=== PATIENT | female | born 1945 | race Caucasian/White ===

== ENCOUNTER 2017-10-27 19:12 | Inpatient (IN) | payer OTHER, MEDICARE ==
[~2017-10-27] VITALS: Ht 157.5 cm; Wt 74.4 kg
[~2017-10-27 19:12] MED LIST: ASPIRIN CHILDRE81 MG PO; ATORVASTATIN CA20 MG PO; CO-Q-10 200 MG-1 SGL PO; FLUOXETINE20 MG PO; HYDRODIURIL 112.5 M1 PO; LEVOTHYROXIN0.088 M1 PO; LISINOPRIL20 MG PO; MULTIVITAMIN1 TAB PO; VITAB121000 PO; VITAMIN D1000 IU PO; VITAMIN D32000 I1 PO
--- NOTE | 2017-10-27 19:24 | ED GENERAL ADULT ---
History of Present Illness General Chief Complaint: Nausea, Vomiting, Diarrhea Stated Complaint: NVD Source: patient, family, old records, EMS Exam Limitations: no limitations Vital Signs & Intake/Output Vital Signs & Intake/Output Vital Signs Date Time Temp Pulse Resp B/P B/P Pulse O2 O2 Flow FiO2 Mean Ox Delivery Rate 10/27 2110 96.9 69 18 181/76 95 Room Air 10/27 1941 98 Room Air 10/27 1924 97.5 70 18 172/79 97 Room Air Allergies Coded Allergies: Penicillins (WAS TOLD BY SHE WAS ALLERGIC 10/27/17) latex (WAS TOLD BY SHE WAS ALLERGIC 10/27/17) Reconcile Medications Ascorbic Acid (Vitamin C) 1,000 MG TABLET 2 TAB PO DAILY SUPPLEMENT (Reported ) Aspirin (Ecotrin*) 81 MG TABLET.DR 1 TAB PO DAILY HEART/BLOOD (Reported) Atorvastatin Calcium (Lipitor) 20 MG TABLET 1 TAB PO DAILY CHOLESTEROL ( Reported) Cetirizine HCl (Zyrtec) 10 MG TABLET 1 TAB PO PRN ALLERGIES (Reported) Clindamycin HCl (Cleocin HCl) (Unknown Strength) CAPSULE (Unknown Dose) PO AD PRN DENTIST APPT (Reported) Cranberry Extract (Cranberry) 500 MG CAPSULE 5 CAP PO DAILY SUPPLEMENT ( Reported) Cyanocobalamin (Vitamin B-12) (Vitamin B-12) 250 MCG TABLET 3 TAB PO DAILY SUPPLEMENT (Reported) Fluoxetine HCl 20 MG CAPSULE 1 CAP PO DAILY MENTAL HEALTH (Reported) Levothyroxine Sodium (Levoxyl) 75 MCG TABLET 1 TAB PO DAILY THYROID (Reported ) Lisinopril 30 MG TABLET 1 TAB PO DAILY BP (Reported) Multivit-Min/Atul/Biotin/D3/FA (Biotin Plus-Calcium & Vit D3) 200 MG-450 MCG-400 UNIT-400 MCG TABLET 2 TAB PO DAILY SUPPLEMENT (Reported) [place]-3 Fatty Acids/Fish Oil (Fish Oil 1,200 MG Softgel) 360 MG-1,200 MG CAPSULE 2 CAP PO DAILY SUPPLEMENT (Reported) [place] Oil/[place]-3 Fatty Acids ([place] Oil 1,000 MG Softgel) (Unknown Strength) CAPSULE (Unknown Dose) PO DAILY SUPPLEMENT (Reported) Solifenacin Succinate (Vesicare) 5 MG TABLET 1 TAB PO DAILY BLADDER (Reported ) Turmeric Root Extract (Turmeric) (Unknown Strength) CAPSULE (Unknown Dose) PO DAILY SUPPLEMENT (Reported) Ubidecarenone (Co Q-10) 200 MG CAPSULE 1 CAP PO DAILY SUPPLEMENT (Reported) Vitamin B Complex/Folic Acid (Vitamin B-50 Complex Tablet) (Unknown Strength) TABLET (Unknown Dose) PO DAILY SUPPLEMENT (Reported) Triage Note: 72F BIBA FOR INCREASED WEAKNESS 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 HX ALS AND GAIT LIMITATIONS DUE TO WEAKNESS/PARALYSIS. MUCOUS MEMBRANES GOOD. ABLE TO COMMUNICATE VERBALLY WITH SLURRING OF WORKS. ORIENTED X3. AFEBRILE. CONTRACTED LEGS WITH PAIN TO BOTH AND TO BACK Triage Nurses Notes Reviewed? yes HPI: Patient brought in by ambulance for increasing weakness. Patient has ALS. Patient was seen by [facility] on Wednesday. They are in the process of ordering her a wheelchair. This afternoon she had an episode of diarrhea. Patient is currently using a walker to get around but is unable to because of bilateral leg and knee weakness. Patient brought in for evaluation. Patient denies any abdominal pain. Patient denies any anorexia however she states that she has not eaten dinner. There are no fevers or chills. She denies any dysuria. The patient is usually able to pivot without her to her motorized wheelchair however over the past 3 days he is barely able to move her. Tonight after going to the bathroom she fell while getting off the toilet. Her was able to catch her and lowered her to the ground. He was then unable to pick her up secondary to her weakness so 911 was contacted. Past History Medical History Any Pertinent Medical History? see below for history Cardiovascular: hypertension Endocrine: hyperthyroidism Other Medical Hx: ALS Surgical History Surgical History: non-contributory Psychosocial History What is your primary language Setswana Tobacco Use: Never used ETOH Use: denies use Illicit Drug Use: denies illicit drug use Family History Hx Contributory? No Review of Systems Review of Systems Constitutional: Reports: see HPI, weakness. EENTM: Reports: no symptoms. Respiratory: Reports: no symptoms. Cardiovascular: Reports: no symptoms. GI: Reports: see HPI, diarrhea (X1). Genitourinary: Reports: no symptoms. Musculoskeletal: Reports: see HPI. Skin: Reports: no symptoms. Neurological/Psychological: Reports: no symptoms. Hematologic/Endocrine: Reports: no symptoms. Immunologic/Allergic: Reports: no symptoms. All Other Systems: Reviewed and Negative Physical Exam Physical Exam General Appearance: well developed/nourished, alert, awake, anxious, mild distress Head: atraumatic, normal appearance Eyes: Bilateral: PERRL, EOMI. Ears, Nose, Throat: normal pharynx, normal ENT inspection, hearing grossly normal Neck: normal inspection, supple, full range of motion Respiratory: normal breath sounds, chest non-tender, no respiratory distress, lungs clear Cardiovascular: regular rate/rhythm, normal peripheral pulses Gastrointestinal: normal bowel sounds, soft, non-tender, no organomegaly Back: normal inspection, normal range of motion Extremities: normal inspection, normal capillary refill, normal range of motion, no edema Neurologic/Psych: no motor/sensory deficits, awake, alert, oriented x 3, normal mood/affect Core Measures ACS in differential dx? No CVA/TIA Diagnosis: No Sepsis Present: No Sepsis Focused Exam Completed? No Progress Differential Diagnoses I considered the following diagnoses in my evaluation of the patient: [ ELECTROLYTE ABNORMALITY, ENTERITIS, DEHYDRATION] Plan of Care: Orders Procedure Date/time Status Heart Healthy Diet 10/28 B Active ED Holding Orders 10/27 2148 Active Admit to inpatient 10/27 2148 Active Vital Signs 10/27 2148 Active Code Status 10/27 2148 Active URINALYSIS 10/27 1923 Active TROPONIN LEVEL 10/27 1923 Complete COMPREHENSIVE METABOLIC PANEL 10/27 1923 Complete CBC WITHOUT DIFFERENTIAL 10/27 1923 Complete EKG 10/27 1923 Active Laboratory Tests 10/27/17 193: Anion Gap 12, Estimated GFR > 60, BUN/Creatinine Ratio 41.7 H, Glucose 104 H, Calcium 9.9, Total Bilirubin 0.4, AST 31, ALT 30, Alkaline Phosphatase 94, Troponin I < 0.01, Total Protein 7.1, Albumin 4.2, Globulin 2.9, Albumin/ Globulin Ratio 1.4, CBC w Diff NO MAN DIFF REQ, RBC 5.16, MCV 85.0, MCH 28.1, MCHC 33.1, RDW 13.4, MPV 12.6 H, Gran % 82.9 H, Lymphocytes % 11.9 L, Monocytes % 3.9, Eosinophils % 1.0, Basophils % 0.3, Absolute Granulocytes 8.1 H, Absolute Lymphocytes 1.2, Absolute Monocytes 0.4, Absolute Eosinophils 0.1, Absolute Basophils 0 Initial ED EKG: NSR, nonspecific ST T wave chg Departure Departure Disposition: STILL A PATIENT Condition: Stable Clinical Impression Primary Impression: Multifactorial gait disorder Referrals: Elisa Corbett MD (PCP/Family) Departure Forms: Customer Survey General Discharge Information Admission Note Spoke With: Gallo Mancilla MDhesham Documentation of Exam: Documentation of any treatments & extenuating circumstances including Concerns Regarding Discharge (functional status, medication knowledge or non-compliance, living conditions, etc.) that warrant an admission rather than observation: [PT TO BE ADMITTED FOR PROFOUND WEAKNESS, UNSAFE AT HOME, PT EVALUATION AND TREATMENT, ANTICIPATE STR.] Critical Care Note Critical Care Note Critical Care Time: non-applicable
[2017-10-27 19:46] LABS: ABSOLUTE BASOPHIL COUNT 0 /CUMM (0.0-0.2); ABSOLUTE EOSINOPHIL COUNT 0.1 /CUMM (0.0-0.7); ABSOLUTE GRANULOCYTE CT 8.1 /CUMM (1.4-6.5); ABSOLUTE LYMPH COUNT 1.2 /CUMM (1.2-3.4); ABSOLUTE MONOCYTE COUNT 0.4 /CUMM (0.10-0.60); BASOPHIL % 0.3 % (0.0-2.0); GRANULOCYTE % 82.9 % (42.2-75.2); HEMATOCRIT 43.9 % (37-47); MEAN CORPUSCULAR HGB 28.1 PG (27.0-31.0); MEAN CORPUSCULAR HGB CONC 33.1 G/DL (33.0-37.0); MEAN PLATELET VOLUME 12.6 FL (7.4-10.4); PLATELET COUNT 202 /CUMM (130-400); RBC DISTRIBUTION WIDTH 13.4 % (11.5-14.5); RED BLOOD CELL CT 5.16 /CUMM (4.20-5.40); WHITE BLOOD CELL COUNT 9.8 /CUMM (4.8-10.8)
[2017-10-27] MEDS ORDERED: LEVOXYL75 MCG PO (19:47)
[2017-10-27] MEDS ORDERED: LISINOPRIL30 M1 PO (19:47)
[2017-10-27] MEDS ORDERED: ASPIRIN EC81 M1 PO (19:48)
[2017-10-27] MEDS ORDERED: FLUOXETINE HCL20 M2 PO (19:48)
[2017-10-27] MEDS ORDERED: LIPITOR20 M2 PO (19:48)
[2017-10-27] MEDS ORDERED: ZYRTEC10 M3 PO (19:49)
[2017-10-27] MEDS ORDERED: CLEOCIN HCL300 M1 PO (19:51)
[2017-10-27] MEDS ORDERED: BIOTIN PLUS-CA1 EACH PO (19:52)
[2017-10-27] MEDS ORDERED: VESICARE5 M1 PO (19:52)
[2017-10-27] MEDS ORDERED: VITAMIN B-12250 MCG PO (19:53)
[2017-10-27] MEDS ORDERED: OMEGA-31000 M1 PO (19:54)
[2017-10-27] MEDS ORDERED: VITAMIN C1000 M4 PO (19:54)
[2017-10-27] MEDS ORDERED: VITAMIN B-50 C0.4 MG PO (19:55)
[2017-10-27] MEDS ORDERED: FISH OIL 1,2001 EAC4 PO (19:56)
[2017-10-27] MEDS ORDERED: SALMON OIL 1,01 EACH PO (19:57)
[2017-10-27] MEDS ORDERED: CO Q-10200 MG PO (19:58)
[2017-10-27] MEDS ORDERED: CRANBERRY500 MG PO (19:58)
[2017-10-27] MEDS ORDERED: TURMERIC500 M2 PO (20:00)
--- NOTE | 2017-10-27 22:33 | History & Physical ---
Jamaal BOYD,[facility] 10/27/17 2232: General Information and HPI MD Statement: I have seen and personally examined JERMAINE BEARDEN and documented this H&P. The patient is a 72 year old F who presented with a patient stated chief complaint of [generalized weakness]. Source of Information: patient Exam Limitations: no limitations History of Present Illness: The patient is 72-year-old female with past medical history of ALS diagnosed in 2016, history of multiple falls, hypertension, hypothyroidism and depression. The patient presented to [place] ED on 10/27 with complain of generalized weakness resulting in mechanical fall. The patient states that she had a fall in May 2017 resulting in intracranial bleed. Since then her weakness has been getting more and more worse and she is now wheelchair-bound completely. She has a motorized wheelchair. She just pivots from the wheelchair to the toilet and bed with the help of her . Patient was in her usual state of health until last night. She went to the bathroom while getting up from the commode she felt like her legs completely gave up on her. Her caught her before she could fall and lowered her to the ground slowly. Her legs rolled under her and she hit her knees. At that time she had one episode of fecal incontinence. Patient denies any chest pain palpitations or lightheadedness and dizziness before the episode. She did not hit her head. She did not lose consciousness. There was no seizure-like activity or jerking movement of the body. No tongue bite. No urinary incontinence. She remembers the whole incident. On ROS she reports extreme weakness, and right neck and shoulder pain along with back spasms. Patient denies any difficulty breathing or swallowing. Reports voice change since past 1 year. Allergies/Medications Allergies: Coded Allergies: Penicillins (WAS TOLD BY SHE WAS ALLERGIC 10/27/17) latex (WAS TOLD BY SHE WAS ALLERGIC 10/27/17) Past History Travel History Traveled to [place] past 21 day No Medical History Neurological: ALS EENT: NONE Cardiovascular: hypertension Respiratory: NONE Gastrointestinal: NONE Hepatic: NONE Renal: NONE Musculoskeletal: NONE Psychiatric: NONE Endocrine: hyperthyroidism Other Medical Hx: ALS Surgical History Surgical History: cholecystectomy, hysterectomy, knee replacement (b/l) Past Family/Social History Psychosocial History Where do you live? Home Who Do You Live With? spouse Primary Language: Macedonian Smoking Status: Never Smoked ETOH Use: occasional use Illicit Drug Use: denies illicit drug use Functional Ability ADLs Needs Assist: dressing, eating, toileting, bathing. Ambulation: non-ambulatory, wheel chair bound IADLs Needs Assist: shopping, housework, finances, food prep, telephone, transportation, medication admin. Review of Systems Review of Systems Constitutional: Reports: see HPI. Denies: chills, fever. EENTM: Reports: no symptoms. Cardiovascular: Reports: no symptoms. Denies: chest pain. Respiratory: Reports: no symptoms. Denies: cough, orthopnea, sputum production. GI: Reports: no symptoms. Genitourinary: Reports: no symptoms. Musculoskeletal: Reports: back pain, joint pain, neck pain. Skin: Reports: no symptoms. Exam & Diagnostic Data Last 24 Hrs of Vital Signs/I&O Vital Signs Date Time Temp Pulse Resp B/P B/P Pulse O2 O2 Flow FiO2 Mean Ox Delivery Rate 10/27 2332 97.1 64 18 170/72 95 Room Air 10/27 2111 96.9 69 18 181/76 95 Room Air 10/27 1942 98 Room Air 10/27 1925 97.5 70 18 172/79 97 Room Air Intake & Output 10/28 0800 10/28 0000 10/27 1600 Intake Total 1000 Output Total 400 Balance 600 Intake, IV 1000 Output, Urine 400 Patient 164 lb Weight Weight Reported by Patient Measurement Method Physical Exam General Appearance Alert, Oriented X3, Cooperative Skin No Rashes HEENT Atraumatic, PERRLA, EOMI, Mucous Membr. moist/pink Neck Supple, No JVD Cardiovascular Normal S1, Normal S2, No Murmurs Lungs Clear to Auscultation, Normal Air Movement Abdomen Normal Bowel Sounds, Soft, No Tenderness Neurological Normal Speech, Normal Tone, Sensation Intact, Cranial Nerves 3-12 NL Extremities No Edema, Normal Pulses Last 24 Hrs of Labs/[place]: Laboratory Tests 10/27/17 2155: Urine Color YEL, Urine Clarity CLEAR, Urine pH 6.0, Ur Specific [place] 1.020, Urine Protein NEG, Urine Ketones TRACE H, Urine Nitrite NEG, Urine Bilirubin NEG, Urine Urobilinogen 0.2, Ur Leukocyte Esterase TRACE H, Ur Microscopic SEDIMENT EXAMINED, Urine RBC RARE, Urine WBC 5-10 H, Ur Epithelial Cells RARE, Urine Bacteria FEW H, Urine Mucus MOD H, Urine Hemoglobin NEG, Urine Glucose NEG 10/27/173: Anion Gap 12, Estimated GFR > 60, BUN/Creatinine Ratio 41.7 H, Glucose 104 H, Calcium 9.9, Total Bilirubin 0.4, AST 31, ALT 30, Alkaline Phosphatase 94, Troponin I < 0.01, Total Protein 7.1, Albumin 4.2, Globulin 2.9, Albumin/ Globulin Ratio 1.4, CBC w Diff NO MAN DIFF REQ, RBC 5.16, MCV 85.0, MCH 28.1, MCHC 33.1, RDW 13.4, MPV 12.6 H, Gran % 82.9 H, Lymphocytes % 11.9 L, Monocytes % 3.9, Eosinophils % 1.0, Basophils % 0.3, Absolute Granulocytes 8.1 H, Absolute Lymphocytes 1.2, Absolute Monocytes 0.4, Absolute Eosinophils 0.1, Absolute Basophils 0 Diagnostic Data CXR Results IMPRESSION: No evidence for acute disease. Other Results XRY-KNEE COMPLETE LEFT; XRY-KNEE COMPLETE RIGHT IMPRESSION: Intact bilateral knee prostheses. Small bilateral knee joint effusions. No acute fractures. Assessment/Plan Assessment: The patient is 72-year-old female with past medical history of ALS diagnosed in 2016, history of multiple falls, hypertension, hypothyroidism and depression. The patient presented to [place] ED on 10/27 with complain of generalized weakness resulting in mechanical fall. -VS within normal limits.BP 172/79 on autocuff -Pertinent labs WNL -Imaging findings dictated above -In ED patient received 2 mg of normal saline -She is being admitted to general medicine floor and was being evaluated and treated for following conditions #Generalized weakness and physical deconditioning Patient has history of ALS and recurrent falls with intracranial bleed in 2017. Her weakness has been worsening over time. Currently she is wheelchair-bound and pivots from her wheelchair to her bed and toilet with help of her . -PT evaluation in the morning -Patient will benefit from short-term rehabilitation -Pain pathway Tylenol, Toradol and lidocaine patch -Flexeril for back sapsms -Casemanagement pt wants to go to [facility] -Check TSH, free T4, B12, vit D #Prolonged QTC -Repeat EKG in am -Avoid QTC prolonging drugs #Chronic medical condition hypothyroidism, hypertension, overactive bladder and depression continue levothyroxine, lisinopril, Vesicare and fluoxetine. #DNR/DNI/DVT prophylaxis with Lovenox/regular diet As Ranked By This Provider Problem List: 1. Weakness Core Measures/Misc (06/20) Cerebrovascular Accident CVA/TIA Diagnosis: No Ngoc Greer 10/28/17 0030: General Information and HPI Allergies/Medications Home Med list Ascorbic Acid (Vitamin C) 1,000 MG TABLET 2 TAB PO DAILY SUPPLEMENT (Reported ) Aspirin (Ecotrin*) 81 MG TABLET.DR 1 TAB PO DAILY HEART/BLOOD (Reported) Cetirizine HCl (Zyrtec) 10 MG TABLET 1 TAB PO PRN ALLERGIES (Reported) Clindamycin HCl (Cleocin HCl) (Unknown Strength) CAPSULE (Unknown Dose) PO AD PRN DENTIST APPT (Reported) Cranberry Extract (Cranberry) 500 MG CAPSULE 5 CAP PO DAILY SUPPLEMENT ( Reported) Cyanocobalamin (Vitamin B-12) (Vitamin B-12) 250 MCG TABLET 3 TAB PO DAILY SUPPLEMENT (Reported) Fluoxetine HCl 20 MG CAPSULE 1 CAP PO DAILY MENTAL HEALTH (Reported) Levothyroxine Sodium (Levoxyl) 75 MCG TABLET 1 TAB PO DAILY THYROID (Reported ) Lisinopril 30 MG TABLET 1 TAB PO DAILY BP (Reported) Multivit-Min/Atul/Biotin/D3/FA (Biotin Plus-Calcium & Vit D3) 200 MG-450 MCG-400 UNIT-400 MCG TABLET 2 TAB PO DAILY SUPPLEMENT (Reported) [place]-3 Fatty Acids/Fish Oil (Fish Oil 1,200 MG Softgel) 360 MG-1,200 MG CAPSULE 2 CAP PO DAILY SUPPLEMENT (Reported) [place] Oil/[place]-3 Fatty Acids ([place] Oil 1,000 MG Softgel) (Unknown Strength) CAPSULE (Unknown Dose) PO DAILY SUPPLEMENT (Reported) Solifenacin Succinate (Vesicare) 5 MG TABLET 1 TAB PO DAILY BLADDER (Reported ) Turmeric Root Extract (Turmeric) (Unknown Strength) CAPSULE (Unknown Dose) PO DAILY SUPPLEMENT (Reported) Ubidecarenone (Co Q-10) 200 MG CAPSULE 1 CAP PO DAILY SUPPLEMENT (Reported) Vitamin B Complex/Folic Acid (Vitamin B-50 Complex Tablet) (Unknown Strength) TABLET (Unknown Dose) PO DAILY SUPPLEMENT (Reported) Core Measures/Misc (06/20) Acute Coronary Syndrome ACS Diagnosis: No Congestive Heart Failure Congestive Heart Failure Diagnosis No VTE (View Protocol) VTE Risk Factors Immobility No Mechanical VTE Prophylaxis d/t N/A MechProphylax Ordered No VTE Pharm Prophylaxis d/t NA PharmProphylax ordered Sepsis (View protocol) Sepsis Present: No Resident Review Statement Resident Statement: discussed with international flight attendant Other Findings: 72-year-old woman with past medical history of amyotrophic lateral sclerosis diagnosed September 2016, history of recurrent falls in the past and 1 resulting in intracranial bleed in May 2017. According to patient she has been getting weaker and weaker and wheelchair-bound since then. For past 1 week she was experiencing more generalized weakness. Per patient this morning her was helping her to go on the toilet when her legs gave out. Her was able to hold her and slowly lowered her to the ground. She hurt her both knees. At that time she had one episode of loose bowel movement. Her was not able to pick her up and called 911. She denies any fever, chills, nausea, vomiting, abdominal pain, urinary symptoms. Before the fall she denies any dizziness or lightheadedness, chest pain or discomfort, palpitations. She did not hit her head. No history of loss of consciousness. Currently she complains of pain in her neck, right shoulder, back and both knees. Vitals on admission: Temperature 97.5, pulse 70, respiratory rate 18, blood pressure 172/79 and oxygen saturation 97% on room air Pertinent physical exam findings: Small bruise on the anterior side of left knee. Small vertical healed scars on both knees. Neuro exam without any focality. Labs within normal limits Chest x-ray unremarkable Bilaterally x-ray showed intact bilateral knee prosthesis. Small bilateral knee joint effusion. No acute fractures. In ER she was given 1 L normal saline bolus. Assessment and plan 72-year-old woman with past medical history of amyotrophic lateral sclerosis and history of recurrent falls resulting in intracranial bleed in May 2017. She is going to be admitted to general medicine floor for generalized weakness and physical deconditioning. We will monitor vitals every shift. Continue all her home medications except supplements. PT evaluation and treatment in a.m. To regular diet. DVT prophylaxis. Pain management pathway. DNR/DNI. Laurent BOYD, [facility] 10/28/17 0305: Attending MD Review Statement Attending Statement Attending MD Statement: examined this patient, discuss w/resident/PA/ACADEMIC SUPPORT DIRECTOR, agreed w/resident/PA/ACADEMIC SUPPORT DIRECTOR, reviewed images, amended to note Attending Assessment/Plan: 72 yo F with h/o ALS (diagnosed Sep 2016) is cared for at the [facility] ([place]), HTN, seasonal allergies, DM not on meds s/p gastric sleeve, hypothyroidism, is here for increased weakness and falls. Patient has baseline b/l lower extremity weakness and slurring of speech from ALS. She is wheelchair bound, lives at home with her who helps her for transfers from to bed or toilet. She is able to pivot herself but does not ambulate. She was seen at the [facility] 2 days ago, and since then has been c/o back spasms and neck pain.Today while trying to transfer from to toilet, her knees gave out and she fell. She had an episode of diarrhea and had soiled her clothes. Her was beside her and he lowered her to the ground. He was unable to get her off the floor so EMS was called. When EMS tried to lift her up , she fell again and this time her knees locked up causing her pain. Vitals stable except BP 170/72. Neuro: slurred speech is baseline, no cranial nerve deficit, b/l LE power 2-3/5, limited exam - her knees are supported on two pillows and she would not straighten them for fear of back spasm. Unable to do a complete back exam. Labs: elevated BUN/creat ratio. CXR: neg. Bilateral Knee Xrays: intact knee prostheses, small b/l knee joint effusions, no acute fractures. EKG: SR (read as SVT but thats due to artefact). Assessment and plan: 1. Weakness, physical deconditioning 2. History of ALS 3. Recurrent falls, wheelchair bound but able to pivot 4. Essential hypertension 5. Viral gastroenteritis one episode of diarrhea, no N/V/ abd pain. - Admit to general medicine - Fall precautions - Check TSH, free T4, B12, vit D - Pain management with Tylenol, tramadol - Local lidoderm patch - Add flexeril or baclofen for back spasms - No obvious fractures on knee xray - PT eval - Case management consult for placement, first choice is [facility] DVT ppx Lovenox. DNR/I.
--- NOTE | 2017-10-27 23:31 | RADIOLOGY REPORT ---
EXAMINATION: CHEST 1 VIEW CLINICAL INFORMATION: Pain after fall. COMPARISON: None. TECHNIQUE: An AP view of the chest is provided. FINDINGS: The cardiac silhouette is not enlarged. The mediastinal and hilar contours are unremarkable. There are neither pleural effusions nor pneumothoraces. There are no consolidations. The osseous structures are unremarkable. IMPRESSION: No evidence for acute disease.
--- NOTE | 2017-10-27 23:34 | Admission Certification ---
Admission Certification Certification Statement - As attending physician, I certify that at the time of - admission, based on clinical presentation, severity of - symptoms, need for further diagnostic testing and - therapeutic interventions, and risk of adverse outcomes - without in-hospital treatment, in my clinical assessment, - this patient requires an acute hospital stay for a minimum - of two nights or longer. I have also considered psychsocial - factors such as support system, advanced age, financial - issues, cognitive issues, and failed out-patient treatments, - past re-admission history, safety of patient, and lack of - compliance as applicable. Specific rationale supporting this admission is: Weakness, fall, knee pain, deconditioning needs admission for PT, pain management and eventual STR.
--- NOTE | 2017-10-27 23:35 | RADIOLOGY REPORT ---
EXAMINATIONS: BILATERAL KNEES 3 VIEWS CLINICAL INFORMATION: Bilateral knee pain after fall. COMPARISON: None. TECHNIQUE: AP, lateral, oblique views of each knee were obtained. FINDINGS: There are no fractures or dislocations. Intact bilateral knee prostheses are demonstrated. There is are small bilateral knee joint effusions. There is no significant soft tissue swelling. IMPRESSION: Intact bilateral knee prostheses. Small bilateral knee joint effusions. No acute fractures.
[2017-10-28 07:32] VITALS: BP 142/76
--- NOTE | 2017-10-28 12:33 | PN- Housestaff ---
Joyce BOYD,Monica 10/28/17 1233: Subjective Follow-up For: SP FALL DECONDITIONING ALS Subjective: PATIENT HAS GENERALIZED CHRONIC PAIN IN HER BACK AND NECK AND LEGS. SHE HAS A HOARSE VOICE SECONDARY TO HER ALS Review of Systems Constitutional: Reports: weakness. Cardiovascular: Reports: no symptoms. Respiratory: Reports: no symptoms. Gastrointestinal: Reports: no symptoms. Genitourinary: Reports: no symptoms. Musculoskeletal: Reports: back pain, joint pain, muscle pain, neck pain. Skin: Reports: no symptoms. Neurological/Psychological: Reports: no symptoms. Objective Last 24 Hrs of Vital Signs/I&O Vital Signs Date Time Temp Pulse Resp B/P B/P Pulse O2 O2 Flow FiO2 Mean Ox Delivery Rate 10/28 1432 98.2 73 20 142/67 95 Room Air 10/28 1048 64 144/69 10/28 1044 64 18 144/69 96 Room Air 10/28 0732 98.1 60 18 142/76 10/28 0720 98.2 60 18 147/76 95 Room Air 10/27 2332 97.1 64 18 170/72 95 Room Air 10/27 2111 96.9 69 18 181/76 95 Room Air 10/27 1942 98 Room Air 10/27 1925 97.5 70 18 172/79 97 Room Air Intake & Output 10/28 1600 10/28 0800 10/28 0000 Intake Total 1000 Output Total 400 Balance 600 Intake, IV 1000 Output, Urine 400 Patient 164 lb Weight Weight Reported by Patient Measurement Method Physical Exam General Appearance: Alert, Oriented X3, Cooperative, No Acute Distress Skin: No Rashes, No Breakdown, No Significant Lesion Cardiovascular: Regular Rate, Normal S1, Normal S2, No Murmurs Lungs: Clear to Auscultation, Normal Air Movement Abdomen: Normal Bowel Sounds, Soft, No Tenderness, No Hepatospenomegaly Neurological: Normal Speech, Sensation Intact, Cranial Nerves 3-12 NL, DECREASED STRENGTH THROUGHOUT ARMS AND LEGS Extremities: No Clubbing, No Cyanosis, No Edema, Normal Pulses, No Tenderness/ Swelling Current Medications: Current Medications Sig/Keshawn Start time Last Medication Dose Route Stop Time Status Admin Acetaminophen 650 MG Q8P PRN 10/27 2230 AC PO Aspirin Buffered 81 MG DAILY 10/28 1000 AC 10/28 PO 1048 Cyclobenzaprine HCl 5 MG TID 10/28 1000 AC 10/28 PO 1048 Enoxaparin Sodium 40 MG DAILY 10/28 1000 AC 10/28 SC 1048 Fluoxetine HCl 20 MG DAILY 10/28 1000 AC 10/28 PO 1048 Levothyroxine Sodium 0.075 MG DAILY AC 10/28 0700 AC 10/28 PO 0639 Lidocaine 1 PAT DAILY 10/28 1000 AC 10/28 EXT 1048 Lisinopril 30 MG DAILY 10/28 1000 AC 10/28 PO 1048 Oxybutynin Chloride 5 MG DAILY 10/28 1000 AC 10/28 PO 1048 Sodium Chloride 1,000 ML BOLUS ONE 10/27 1930 DC 10/27 IV 10/27 Tramadol HCl 0 .STK-MED ONE 10/28 1055 DC PO Tramadol HCl 50 MG Q6P PRN 10/28 0100 AC 10/28 PO 1055 Tramadol HCl 0 .STK-MED ONE 10/28 0100 DC PO Last 24 Hrs of Lab/Kapil Results Last 24 Hrs of Labs/Mics: Laboratory Tests 10/28/17 0541: Anion Gap 9, Estimated GFR > 60, BUN/Creatinine Ratio 38.3 H, Vitamin B12 > 1000 H, 25-OH Vitamin D Total 34.3, TSH 1.710, Free T4 1.11 10/27/175: Urine Color YEL, Urine Clarity CLEAR, Urine pH 6.0, Ur Specific [place] 1.020, Urine Protein NEG, Urine Ketones TRACE H, Urine Nitrite NEG, Urine Bilirubin NEG, Urine Urobilinogen 0.2, Ur Leukocyte Esterase TRACE H, Ur Microscopic SEDIMENT EXAMINED, Urine RBC RARE, Urine WBC 5-10 H, Ur Epithelial Cells RARE, Urine Bacteria FEW H, Urine Mucus MOD H, Urine Hemoglobin NEG, Urine Glucose NEG 10/27/171932: Anion Gap 12, Estimated GFR > 60, BUN/Creatinine Ratio 41.7 H, Glucose 104 H, Calcium 9.9, Total Bilirubin 0.4, AST 31, ALT 30, Alkaline Phosphatase 94, Troponin I < 0.01, Total Protein 7.1, Albumin 4.2, Globulin 2.9, Albumin/ Globulin Ratio 1.4, CBC w Diff NO MAN DIFF REQ, RBC 5.16, MCV 85.0, MCH 28.1, MCHC 33.1, RDW 13.4, MPV 12.6 H, Gran % 82.9 H, Lymphocytes % 11.9 L, Monocytes % 3.9, Eosinophils % 1.0, Basophils % 0.3, Absolute Granulocytes 8.1 H, Absolute Lymphocytes 1.2, Absolute Monocytes 0.4, Absolute Eosinophils 0.1, Absolute Basophils 0 Microbiology 10/28 904 URINE ROUT: Urine Culture - COLB Assessment/Plan Assessment: The patient is 72-year-old female with past medical history of ALS diagnosed in 2016, history of multiple falls, hypertension, hypothyroidism and depression. The patient presented to [place] ED on 10/27 with complain of generalized weakness resulting in mechanical fall. -VS within normal limits.BP 172/79 on autocuff ON ADMISSION, NOW NORMAL -Labs WNL -Imaging findings cxr no acute process and no acute injury on xray knees -In ED patient received 2 mg of normal saline -She is admitted to general medicine floor and was being evaluated and treated for following conditions #Generalized weakness and physical deconditioning Patient has history of ALS and recurrent falls with intracranial bleed in 2017. Her weakness has been worsening over time. Currently she is wheelchair-bound and pivots from her wheelchair to her bed and toilet with help of her . -PT IS SUGGESTING STR -Pain pathway Tylenol, tramadol 50mg q6prn and lidocaine patch -Flexeril for back spasms 5mg TID -Case management TO HELP, PATIENT WOULD LIKE [facility] -TSH AND FREE T4 NORMAL, VIT D NORMAL 34, B12 HIGH >1000 -SPEECH AND SWALLOW SAW THE PATIENT AND AGREES WITH CHOPPED FOODS AND REGULAR THIN LIQUIDS. #Prolonged QTC -Avoid QTC prolonging drugs #Chronic medical condition hypothyroidism, hypertension, overactive bladder and depression continue levothyroxine, lisinopril 30mg daily, Vesicare and fluoxetine 20 mg daily. #DNR/DNI/DVT prophylaxis with Lovenox/regular diet Problem List: 1. Weakness 2. Multifactorial gait disorder 3. Knee contusion Pain Ratin Pain Location: WIDESPREAD KNEES NECK BACK Pain Goal: Pain 4 or less Pain Plan: PATHWAY Tomorrow's Labs & Rationales: Indra Wallis 10/28/17 1428: Attending Review Statement Attending Statement Attending MD Statement: examined this patient, discuss w/resident/PA/WIRE SPINNER, agreed w/resident/PA/WIRE SPINNER, discussed with family, reviewed EMR data (avail), discussed with nursing, discussed with case mgmt, reviewed images, amended to note Attending Assessment/Plan: "72 yo F with h/o ALS (diagnosed Sep 2016) is cared for at the [facility] ([place]), HTN, seasonal allergies, DM not on meds s/p gastric sleeve, hypothyroidism, is here for increased weakness and falls. Patient has baseline b/l lower extremity weakness and slurring of speech from ALS. She is wheelchair bound, lives at home with her who helps her for transfers from to bed or toilet. She is able to pivot herself but does not ambulate. She was seen at the [facility] 2 days ago, and since then has been c/o back spasms and neck pain.Today while trying to transfer from to toilet, her knees gave out and she fell. She had an episode of diarrhea and had soiled her clothes. Her was beside her and he lowered her to the ground. He was unable to get her off the floor so EMS was called. When EMS tried to lift her up , she fell again and this time her knees locked up causing her pain. " Patient seen/examined bedside. Patient with slow speech, follows commands. b/l lower extremity weakness+. uses pillow and not able to straight legs. X-ray knee negative for acute abnormality. Vitals and labs seen. Assessment and plan: 1. Weakness, physical deconditioning 2. History of ALS progressive decline. 3. Recurrent falls, wheelchair bound but able to pivot 4. Essential hypertension 5. doubt Viral gastroenteritis could be incontinence - Fall precautions - f/u TSH, free T4, B12, vit D - Pain management with Tylenol, tramadol - Local lidoderm patch - Add flexeril or baclofen for back spasms - No obvious fractures on knee xray - PT eval, Neuro consult for prognosis. - Case management consult for placement, first choice is [facility] ppx Lovenox. DNR/I.
[2017-10-28 17:19] VITALS: BP 153/69
[2017-10-28 23:03] VITALS: BP 120/80; BP 178/50
[2017-10-29 06:53] VITALS: BP 122/76
--- NOTE | 2017-10-29 08:04 | PN- Housestaff ---
Joyce BOYD,Monica 10/29/17 0804: Subjective Follow-up For: SP FALL DECONDITIONING ALS Subjective: PATIENT CONTINUES TO COMPLAIN ABOUT HER CHRONIC PAINS IN HER SHOULDERS AND NECK AND BACK AND KNEES. HAS NOT HAD BOWEL MOVEMENT IN 2 DAYS. Review of Systems Constitutional: Reports: no symptoms. Musculoskeletal: Reports: back pain, joint pain, muscle pain, neck pain. Objective Last 24 Hrs of Vital Signs/I&O Vital Signs Date Time Temp Pulse Resp B/P B/P Pulse O2 O2 Flow FiO2 Mean Ox Delivery Rate 10/29 1419 98.3 58 18 130/68 94 10/29 1125 Room Air 10/29 0941 61 122/76 10/29 0928 Room Air 10/29 0653 97.9 61 20 122/76 93 10/28 2303 98.3 59 20 120/80 94 Room Air 10/28 2044 97.5 60 19 150/78 99 Room Air 10/28 1905 Room Air 10/28 1828 Room Air 10/28 1825 98.5 68 19 148/72 97 Room Air 10/28 1719 97.7 67 18 153/69 97 Room Air 10/28 1626 97.7 67 19 153/69 97 Room Air Intake & Output 10/29 1600 10/29 0800 10/29 0000 Intake Total 620 490 250 Output Total 450 0 Balance 170 490 250 Intake, IV 10 10 Intake, Oral 620 480 240 Number 0 0 0 Bowel Movements Output, Urine 450 0 Patient 164 lb Weight Physical Exam General Appearance: Alert, Oriented X3, Cooperative, No Acute Distress Skin: No Rashes, No Breakdown, No Significant Lesion Cardiovascular: Regular Rate, Normal S1, Normal S2, No Murmurs Lungs: Clear to Auscultation, Normal Air Movement Abdomen: Normal Bowel Sounds, Soft, No Tenderness, No Hepatospenomegaly Neurological: DECREASED STRENGTH THROUGHOUT Extremities: No Clubbing, No Cyanosis, No Edema, Normal Pulses Vascular: Normal Pulses, Pulses Symmetrical Current Medications: Current Medications Sig/Keshawn Start time Last Medication Dose Route Stop Time Status Admin Acetaminophen 650 MG .STK-MED ONE 10/29 0551 DC PO 10/29 0552 Acetaminophen 650 MG Q8P PRN 10/27 2230 AC 10/29 PO 0553 Aspirin Buffered 81 MG DAILY 10/28 1000 AC 10/29 PO 0941 Cyclobenzaprine HCl 0 .STK-MED ONE 10/28 1611 DC PO Cyclobenzaprine HCl 5 MG TID 10/28 1000 AC 10/29 PO 0941 Docusate Sodium 100 MG DAILY 10/29 1552 UNVr PO Enoxaparin Sodium 40 MG DAILY 10/28 1000 AC 10/29 SC 0943 Fluoxetine HCl 20 MG DAILY 10/28 1000 AC 10/29 PO 0941 Ketorolac 15 MG ONCE ONE 10/29 1145 DC Tromethamine IV 10/29 1146 Ketorolac 15 MG ONCE ONE 10/29 1115 DC 10/29 Tromethamine IV 10/29 1116 1115 Levothyroxine Sodium 0.075 MG DAILY AC 10/28 0700 AC 10/29 PO 0553 Lidocaine 1 PAT DAILY 10/28 1000 AC 10/29 EXT 0946 Lisinopril 30 MG DAILY 10/28 1000 AC 10/29 PO 0941 Oxybutynin Chloride 5 MG DAILY 10/28 1000 AC 10/29 PO 0941 Senna 187 MG AT BEDTIME 10/29 2200 AC PO Tramadol HCl 0 .STK-MED ONE 10/28 1745 DC PO Tramadol HCl 50 MG Q6P PRN 10/28 0100 AC 10/29 PO 1504 Last 24 Hrs of Lab/Kapil Results Last 24 Hrs of Labs/Mics: Laboratory Tests 10/29/17 0710: Anion Gap 7, Estimated GFR > 60, BUN/Creatinine Ratio 41.7 H Microbiology 10/29 0918 URINE ROUT: Urine Culture - COLB Assessment/Plan Assessment: The patient is 72-year-old female with past medical history of ALS diagnosed in 2016, history of multiple falls, hypertension, hypothyroidism and depression. The patient presented to [facility] ED on 10/27 with complain of generalized weakness resulting in mechanical fall. -VS within normal limits BP 172/79 on autocuff ON ADMISSION, NOW NORMAL -Labs WNL -Imaging findings cxr no acute process and no acute injury on xray knees -In ED patient received 2 mg of normal saline -She is admitted to general medicine floor and was being evaluated and treated for following conditions #Generalized weakness and physical deconditioning Patient has history of ALS and recurrent falls with intracranial bleed in 2017. Her weakness has been worsening over time. Currently she is wheelchair-bound and pivots from her wheelchair to her bed and toilet with help of her . -PT IS SUGGESTING STR, SHE HAS A BED AT [facility] -Pain pathway Tylenol, tramadol 50mg q6prn and lidocaine patch, GAVE 15MG TORADOL TODAY. -Flexeril for back spasms 5mg TID -TSH AND FREE T4 NORMAL, VIT D NORMAL 34, B12 HIGH >1000 -SPEECH AND SWALLOW SAW THE PATIENT AND AGREES WITH CHOPPED FOODS AND REGULAR THIN LIQUIDS. #Prolonged QTC -Avoid QTC prolonging drugs #Chronic medical condition hypothyroidism, hypertension, overactive bladder and depression continue levothyroxine, lisinopril 30mg daily, Vesicare and fluoxetine 20 mg daily. #DNR/DNI/DVT prophylaxis with Lovenox/regular diet Problem List: 1. Knee contusion 2. Multifactorial gait disorder 3. Weakness Pain Ratin Pain Location: KNEES BACK NECK SHOULDER Pain Goal: Pain 4 or less Pain Plan: TORADOL 15MG ONCE AND TYLENOL Tomorrow's Labs & Rationales: NONE Indra Mccarthy 10/29/17 1156: Attending MD Review Statement Attending Statement Attending MD Statement: examined this patient, discuss w/resident/PA/MACHINE OPERATORS, agreed w/resident/PA/MACHINE OPERATORS, discussed with family, reviewed EMR data (avail), discussed with nursing, discussed with case mgmt, reviewed images, amended to note Attending Assessment/Plan: Patient reports no bowel movement. She says she has regular bowel movement in 2- 4 days. Patient had last bowel movement in ER with loose stool 1 episode. Assessment and plan: 1. Weakness, physical deconditioning 2. History of ALS progressive decline. 3. Recurrent falls, wheelchair bound but able to pivot 4. Essential hypertension 5. Constipation - Fall precautions - Pain management with Tylenol, tramadol - Local lidoderm patch - flexeril or baclofen for back spasms - No obvious fractures on knee xray - PT eval for STR, Neuro f/u as o/p. - add bowel regimen, monitor bowel movement. - Case management consult for placement, first choice is [facility] DVT ppx Lovenox. DNR/I. - Case management consult for placement, first choice is [facility] DVT ppx Lovenox. DNR/I.
--- NOTE | 2017-10-29 08:41 | Patient Discharge Instructions ---
Discharge Instructions General Discharge Information You were seen/treated for: DECONDITIONING WEAKNESS PLACEMENT ALS Special Instructions: 1. PLEASE FOLLOW UP WITH YOUR PCP IN 1-2 WEEKS Diet Continue normal diet: Yes (CHOPPED) Recommended Diet: Regular Activity Full Activity/No Limits: No (FALL RISK, ONLY WITH ASSIST 2) Acute Coronary Syndrome Inclusion Criteria At DC or during hospital stay patient has or had the following: ACS DIAGNOSIS No Discharge Core Measures Meds if any: Prescribed or Continued at Discharge Meds if any: NOT Prescribed or Continued at Discharge Congestive Heart Failure Inclusion Criteria At DC or during hospital stay patient has or had the following: CHF DIAGNOSIS No Discharge Core Measures Meds if any: Prescribed or Continued at Discharge Meds if any: NOT Prescribed or Continued at Discharge Cerebrovascular accident Inclusion Criteria At DC or during hospital stay patient has or had the following: CVA/TIA Diagnosis No Discharge Core Measures Meds if any: Prescribed or Continued at Discharge Meds if any: NOT Prescribed or Continued at Discharge Venous thromboembolism Inclusion Criteria VTE Diagnosis No VTE Type NONE VTE Confirmed by (Test) NONE Discharge Core Measures - Per Current guidelines, there needs to be overlap - treatment for the first 5 days of Warfarin therapy. - If discharged on Warfarin prior to 5 days of - overlap therapy, the patient will need to be - assessed for post discharge needs including - *Post discharge parental anticoagulation - *Warfarin and/or parental anticoagulation education - *Follow up date to check INR post discharge At least 5 days overlap therapy as Inpatient No Meds if any: Prescribed or Continued at Discharge Note: Overlap Therapy is Warfarin and Anticoagulant Meds if any: NOT Prescribed or Continued at Discharge
--- NOTE | 2017-10-29 08:53 | Discharge Summary ---
Visit Information Visit Dates Admission Date: 10/27/17 Discharge Date: 10/30/17 Hospital Course Course Attending Physician: Shari BOYD,Indra Primary Care Physician: A[facility] Course: 72 yo F with h/o ALS (diagnosed Sep 2016) is cared for at the [facility] ([place]), HTN, seasonal allergies, DM not on meds s/p gastric sleeve, hypothyroidism, is here for increased weakness and falls. Patient has baseline b/l lower extremity weakness and slurring of speech from ALS. She is wheelchair bound, lives at home with her who helps her for transfers from to bed or toilet. She is able to pivot herself but does not ambulate. She was seen at the [facility] 2 days ago, and since then has been c/o back spasms and neck pain.Today while trying to transfer from to toilet, her knees gave out and she fell. She had an episode of diarrhea and had soiled her clothes. Her was beside her and he lowered her to the ground. He was unable to get her off the floor so EMS was called. When EMS tried to lift her up , she fell again and this time her knees locked up causing her pain. Vitals stable except BP 170/72. Neuro: slurred speech is baseline, no cranial nerve deficit, b/l LE power 2-3/5, limited exam - her knees are supported on two pillows and she would not straighten them for fear of back spasm. Unable to do a complete back exam. Labs: elevated BUN/creat ratio. CXR: neg. Bilateral Knee Xrays: intact knee prostheses, small b/l knee joint effusions, no acute fractures. EKG: SR (read as SVT but thats due to artefact). Assessment and plan: 1. Weakness, physical deconditioning 2. History of ALS 3. Recurrent falls, wheelchair bound but able to pivot 4. Essential hypertension 5. Viral gastroenteritis one episode of diarrhea, no N/V/ abd pain. Admit to general medicine 1. Weakness, physical deconditioning - secondary to ALS She is placed on fall precautions. PT evaluated and recommended STR. She found to have diffuse pain with muscle weakness. Provided with tramadol , lidoderm patch, flexeril, baclofen. TSH and free T4 normal. B12 >1000. Chronic medical conditions HTN: continue ASA 81mg, lisinopril 30mg daily. Hypothyroidism: continue levothyroxine 0.075mg daily. Depression: continue fluoxetine. Bladder: continue oxybutynin daily. DVT ppx Lovenox. DNR/I. Complications: None Allergies: Coded Allergies: Penicillins (WAS TOLD BY SHE WAS ALLERGIC 10/27/17) latex (WAS TOLD BY SHE WAS ALLERGIC 10/27/17) Significant Procedures: CXR on 10/27/17 IMPRESSION: No evidence for acute disease. Knee Xray on 10/27/17 IMPRESSION: Intact bilateral knee prostheses. Small bilateral knee joint effusions. No acute fractures. Pertinent Lab Results: as above Disposition Summary Disposition Principal Diagnosis: Generalized weakness and deconditioning Additional Diagnosis: ALS hypothyroidism hypertension overactive bladder depression Discharge Disposition: short term rehab Discharge Instructions General Discharge Information Code Status: Do Not Resucitate/Intubat Patient's Diet: chopped/thin Patient's Activity: as tolerated Follow-Up Instructions/Appts: Please follow up with your PCP in a week Medications at Discharge Discharge Medications: Stop taking the following medications: Clindamycin HCl (Cleocin HCl) (Unknown Strength) CAPSULE ORAL As Directed as needed for DENTIST APPT Continue taking these medications: Levothyroxine Sodium (Levoxyl) 75 MCG TABLET 1 Tablet ORAL DAILY Comments: Last Taken:10/30/17 Time:5:53 AM Lisinopril (Lisinopril) 30 MG TABLET 1 Tablet ORAL DAILY Comments: Last Taken:10/30/17 Time:9:41 AM Fluoxetine HCl (Fluoxetine HCl) 20 MG CAPSULE 1 Capsule ORAL DAILY Comments: Last Taken:10/30/17 Time:9:41 AM Aspirin (Ecotrin*) 81 MG TABLET. 1 Tablet ORAL DAILY Comments: Last Taken:10/30/17 Time:9:41 AM Cetirizine HCl (Zyrtec) 10 MG TABLET 1 Tablet ORAL as needed for ALLERGIES Comments: NOT GIVEN Solifenacin Succinate (Vesicare) 5 MG TABLET 1 Tablet ORAL DAILY Qty = 30 Multivit-Min/Atul/Biotin/D3/FA (Biotin Plus-Calcium & Vit D3) 200 MG-450 MCG-400 UNIT-400 MCG TABLET 2 Tablet ORAL DAILY Cyanocobalamin (Vitamin B-12) (Vitamin B-12) 250 MCG TABLET 3 Tablet ORAL DAILY Ascorbic Acid (Vitamin C) 1,000 MG TABLET 2 Tablet ORAL DAILY Comments: NOT GIVEN Vitamin B Complex/Folic Acid (Vitamin B-50 Complex Tablet) (Unknown Strength) TABLET Unknown Dose ORAL DAILY Clark-3 Fatty Acids/Fish Oil (Fish Oil 1,200 MG Softgel) 360 MG-1,200 MG CAPSULE 2 Capsule ORAL DAILY Piqua Oil/Clark-3 Fatty Acids (Piqua Oil 1,000 MG Softgel) (Unknown Strength) CAPSULE Unknown Dose ORAL DAILY Cranberry Extract (Cranberry) 500 MG CAPSULE 5 Capsule ORAL DAILY Ubidecarenone (Co Q-10) 200 MG CAPSULE 1 Capsule ORAL DAILY Turmeric Root Extract (Turmeric) (Unknown Strength) CAPSULE Unknown Dose ORAL DAILY Start taking the following new medications: Cyclobenzaprine HCl (Cyclobenzaprine HCl) 5 MG TABLET 1 Tablet ORAL THREE TIMES A DAY NEEDED Qty = 30 No Refills Comments: Last Taken:10/30/17 Time:9:42 AM Lidocaine (Lidoderm) 5 % ADH..PATCH 1 Patch On the skin DAILY Qty = 30 No Refills Instructions: may wear up to 12 hours Tramadol HCl (Tramadol HCl) 50 MG TABLET 1 Tablet ORAL 2 x Daily as needed as needed for MODERATE PAIN Qty = 30 No Refills Comments: Last Taken:10/30/17 Time:12:30 PM Polyethylene Glycol 3350 (Miralax) 17 GRAM POWD.PACK 1 Packet ORAL DAILY as needed for CONSTIPATION Qty = 2 No Refills Instructions: dissolve in water Sennosides (Senna Laxative) 8.6 MG TABLET 1 Tablet ORAL DAILY Qty = 30 No Refills Copies To: Aric BOYD,Elisa Wilkinson MD Review Statement Documenting Attending: Indra Mccarthy MD Other Findings: Assessment and plan: 1. Weakness, physical deconditioning 2. History of ALS progressive decline. 3. Recurrent falls, wheelchair bound but able to pivot 4. Essential hypertension 5. Constipation - Fall precautions - Pain management with Tylenol, tramadol - Local lidoderm patch - flexeril or baclofen for back spasms - No obvious fractures on knee xray - PT eval for STR, Neuro f/u as o/p. - Patient medically and vitally stable for discharge.
[2017-10-29 14:19] VITALS: BP 130/68
[2017-10-29 23:00] VITALS: BP 133/72
[2017-10-30 07:01] VITALS: BP 134/78
[2017-10-30] MEDS ORDERED: SENNA LAXATIVE8.6 M1 PO (11:33)
[2017-10-30] MEDS ORDERED: MIRALAX17 G1 PO (11:33)
[2017-10-30] MEDS ORDERED: LIDODERM1 EACH TOP (11:33)
[2017-10-30] MEDS ORDERED: CYCLOBENZAPRINE5 M2 PO (11:33)
[2017-10-30] MEDS ORDERED: TRAMADOL HCL50 M1 PO (11:33)
[2017-10-30 12:26] VITALS: BP 124/78
--- NOTE | 2017-10-30 13:28 | PN- Att Addend ---
Attending Addendum Attending Brief Note Patient seen and examined, overall feels okay. Claims that pain medications are working to control her pain. She is a patient with history of ALS was admitted with generalized weakness and diffuse pain. Pain control is achieved with Flexeril, tramadol and Lidoderm. Patient has a bed available at rehabilitation today and she is medically stable for discharge to rehabilitation. The rest of her home medications will be continued. She will also be started on by mouth and bowel regimen. Patient to follow with her primary care doctor as well as her ALS specialist
== END 2017-10-30 14:00 | DRG 57 ==
LOC: ERH 19:12 → ERHI 21:49 → 2NB 21:49 → ERHI 10-28 08:25 → ENRESERV 10-28 20:42 → 2NB 10-28 21:03 → ENPENDDIS 10-30 11:22 → 2NB 10-30 14:00
PROVIDERS: Emergency Medicine
DX: G12.21 Amyotrophic lateral sclerosis (principal); E03.9 Hypothyroidism, unspecified; R26.89 Other abnormalities of gait and mobility; I10 Essential (primary) hypertension; Z91.81 History of falling; M62.830 Muscle spasm of back; Z98.84 Bariatric surgery status; Z99.3 Dependence on wheelchair; Z88.0 Allergy status to penicillin; Z91.040 Latex allergy status; Z90.710 Acquired absence of both cervix and uterus; Z90.49 Acquired absence of other specified parts of digestive tract; Z96.653 Presence of artificial knee joint, bilateral; F32.9 Major depressive disorder, single episode, unspecified; N32.81 Overactive bladder; Z66 Do not resuscitate; Z79.82 Long term (current) use of aspirin; W18.11XA Fall from or off toilet without subsequent striking against object, initial encounter; Y93.9 Activity, unspecified; Y92.012 Bathroom of single-family (private) house as the place of occurrence of the external cause
CPT/HCPCS: 2NBSP; ERO; 36415; 71045; 73562-LT; 73562-RT; 81001; 82436; 87086; 93005; 93010; 96360; 97110-GO; 97161-GP; G8978-GP; G8979-GP; J1650; J1885